=== PATIENT | male | born 1970 | race Two or more races ===

== ENCOUNTER 2021-09-14 11:07 | Outpatient (REF) | payer OTHER, SELFPAY ==
[2021-09-14 13:25] LABS: COVID-19 Test Negative (Negative)
== END 2021-09-14 11:08 | disposition home or self-care (01) ==
LOC: HO.LAB 11:07
PROVIDERS: Visit Provider Internal Medicine
DX: Z20.822 Contact with and (suspected) exposure to COVID-19 (principal)
CPT/HCPCS: 87635; C9803

== ENCOUNTER 2024-09-16 17:56 | Emergency (ER) | payer OTHER, SELFPAY ==
[2024-09-16 18:07] VITALS: BP 128/68; PULSE 90; RESP 20; TEMP 36.9; O2SAT 99; BMI 23.9
--- NOTE | 2024-09-16 19:33 | MHC.EDTECH ---
Patient brought into triage area,labs,and both sets of blood cultures obtained and sent to lab
[2024-09-16 19:39] LABS: MANUAL DIFF FLAG NO
[2024-09-16 19:41] LABS: Basophils Percent Auto 0.2 % (0-2); Eosinophils Absolute Auto 0.2 X10*3/uL (0.0-0.4); Eosinophils Percent Auto 2.1 % (0-4); Hematocrit 33.9 % (42.0-52.0); Hemoglobin 11.8 g/dl (14.0-18.0); Imm Gran Abs Auto 0.05 X10*3/uL (0.00-0.03); Imm Gran Pct Auto 0.5 % (0.0-0.4); Lymphocytes Absolute Auto 1.6 X10*3/uL (1.2-4.9); Lymphocytes Percent Auto 15.4 % (20-40); Mean Corpuscular HGB Conc 34.8 g/dl (31.0-36.0); Mean Corpuscular Hemoglobin 29.5 pg (27.0-33.0); Mean Corpuscular Volume 84.8 fL (80.0-98.0); Mean Platelet Volume 8.9 fL (9.4-12.4); Monocytes Absolute Auto 0.7 X10*3/uL (0.1-1.2); Monocytes Percent Auto 6.8 % (2-11); Neutrophils Absolute Auto 7.7 x10*3/uL (2.0-8.3); Platelet Count 369 X10*3/uL (160-400); Red Cell Distribution Width 12.3 % (11.0-16.0); White Blood Count 10.2 X10*3/uL (4.8-10.8)
[2024-09-16 20:04] LABS: Lactic Acid 1.3 mmol/L (0.5-2.0)
[2024-09-16 20:06] LABS: Alanine Aminotransferase 36 U/L (0-40); Albumin Level 3.1 g/dL (3.5-5.0); Alkaline Phosphatase 290 U/L (39-117); Anion Gap 9 (12-20); Aspartate Amino Transferase 35 U/L (5-37); Bilirubin Total 0.3 mg/dL (0.0-1.0); Blood Urea Nitrogen 23 mg/dL (9-16); Calcium 8.8 mg/dL (8.4-10.2); Carbon Dioxide 27 mmol/L (22-29); Chloride 101 mmol/L (96-108); Creatinine Clr Calc Pharmacy 77.4; Estimated Glomerular Filt Rate > 60; Glucose Random 250 mg/dL (60-115); Lipase 28 U/L (8-78); Potassium 4.7 mmol/L (3.3-5.1); Sodium 132 mmol/L (135-145); Total Protein 8.6 g/dL (6.5-8.0)
--- NOTE | 2024-09-16 22:13 | ED.GENADULT ---
HPI - General Adult General Chief complaint: General Medical Stated complaint: neck pain, no injury Time Seen by Provider: 09/16/24 22:12 Source: patient and family () Mode of arrival: ambulatory Limitations: language barrier (Bruneian speaking only, [facility] [place] student driving instructor used) History of Present Illness ED Provider: Dr. Skip Richard HPI narrative: 54-year-old male with a history diabetes mellitus and hypertension recently admitted for 3 days of IV antibiotics for a throat infection to [facility] discharged 6 days prior. Patient states that he had an infection of the right side of his throat and received IV antibiotics for 3 days. He was discharged on Augmentin 875/125 q.12 hours times 11 days and tramadol for pain. Patient states that since being discharged home he was had difficulty swallowing solids but can swallow liquids. He states it solids seemed to get stuck in his throat and gives him pain. He also states that his neck feels stiff. Patient was taking tramadol for the pain but he states that he was run out of tramadol and has no other pain medications. He denied fever but did have chills. He states that after eating he will sometimes cough, have chest pain, have shortness of breath and vomit. He denies nausea, myalgias, arthralgias or diarrhea. I was able to review the discharge summary from [facility] dated 09/10/2024: Patient's discharge diagnosis was pharyngeal edema, strep pharyngitis, odynophagia, diabetes mellitus and hypertension. Patient was admitted on 09/07/2024 for acute neck pain and dysphagia. Patient had 2 days of poor oral intake with URI symptoms including cough, rhinorrhea, general weakness. CT scan of the neck revealed diffuse wall thickening along the posterior pharyngeal and laryngeal wall suggesting edema or acute infection but no discrete abscess. Throat culture was positive for strep A. ENT consult recommended dexamethasone x2 doses, patient was initially on vancomycin and Zosyn and changed to Unasyn 3 g q.6 hours in treated for 3 days with IV antibiotics. Repeat CT scan of the neck on 09/10/2024 remained negative for abscess and no worsening of his laryngeal edema. Patient was discharged with prescriptions for Augmentin 875/125 twice a day, gabapentin, ibuprofen and tramadol Related Data Previous Rx's ?Medication ?Instructions ?Recorded morphine 15 mg immediate release 15 mg PO Q8H PRN pain #10 tabs 09/17/24 tablet Allergies Allergy/AdvReac Type Severity Reaction Status Date / Time No Known Allergies Allergy Verified 09/16/24 18:11 Review of Systems Review of Systems: Yes all other systems are reviewed and are negative [facility] Past Medical History [facility] Narrative: Social history: He was . It was is here in the emergency department with him. He denies tobacco, alcohol and drug use. Social History Social History Advance Directives: No Advance Directives Information Provided: No Do you have a plan to hurt others: No Plan Physical Exam ED Vital Signs: Vital Signs - 24 hr 09/16/24 18:07 Temperature 98.5 F Pulse Rate 90 Respiratory Rate 20 Blood Pressure 128/68 Pulse Oximetry 99 Oxygen Delivery Method Room Air BMI result Body Mass Index 23.9 Vital signs were normal Exam: General: Awake, alert in no distress Head: Normocephalic, atraumatic EENT: PERRL, Lids normal, sclera normal, conjunctiva normal, nose normal , ears normal, throat without erythema or exudates Neck: Supple, no adenopathy, tenderness palpation of the patient's right trapezius muscle and right side of his neck with no obvious palpable mass, no erythema or increased warmth over the patient's skin Lung: breath sounds symmetric, no wheezing, rales or rhonchi Chest: symmetric movement, nontender Heart: regular rate and rhythm, normal S1, S2 no murmurs or rubs Abdomen: soft, non-tender, nondistended, normal bowel sounds Back: no vertebral tenderness, no CVAT Extremities: no deformities, moves all extremities symmetrically Neuro: Awake, alert, oriented, normal speech, cranial nerves intact, moves all extremities symmetrically Psych: Pleasant, cooperative Medications Administered Discontinued Medications Generic Name Dose Route Start Last Admin Trade Name Freq PRN Reason Stop Dose Admin Sodium Chloride 1,000 mls @ 999 mls/hr 09/16/24 22:31 09/16/24 22:56 Ns IV 09/16/24 23:31 999 mls/hr .Q1H1M STA Administration Morphine Sulfate 4 mg 09/16/24 22:31 09/16/24 22:55 Morphine Sulfate 4 Mg/Ml Cartridge IVPUSH 09/16/24 22:32 4 mg ONCE STA Administration Protocol Ondansetron HCl 4 mg 09/16/24 22:31 09/16/24 22:55 Ondansetron Hcl 4 Mg/2 Ml Vial IVPUSH 09/16/24 22:32 4 mg ONCE ONE Administration Medical Decision Making Medical Decision Making [facility] Narrative: 54-year-old male with a history diabetes mellitus and hypertension r ecently admitted for 3 days of IV antibiotics for a throat infection to [facility] from 09/07/2024 until 09/10/2024 forr pharyngeal and laryngeal wall edema secondary to group a strep infection but no discrete abscess. Patient had 3 days of IV antibiotics and pain medications and was discharged on Augmentin 875/125 q.12 hours times 10 days, tramadol and gabapentin for pain. Patient states that he was having difficulty swallowing solids but not liquids in his having pain with swallowing. Patient had chills but no fever. Review of systems otherwise unremarkable. Vital signs were normal. Physical examination did reveal tenderness palpation of the right side of his neck otherwise was unremarkable. Differential diagnosis: ?Includes but is not limited to peritonsillar abscess, pharyngeal abscess, pharyngeal cellulitis, pharyngeal edema, GERD, globus, electrolyte abnormalities, anemia Course: 22:40 My interpretation patient's laboratory WBC normal 10,200. Normocytic anemia with an H&H of 11.8 and 33.9. Low sodium 132. Elevated BUN 23. Elevated glucose 250. Alk-phos elevated 280. At this time I believe that the patient's dysphagia secondary to pain and not secondary to recurrence of his infection. I did discuss this with the patient. Patient was treated with normal saline IV x1 L, morphine 4 mg IV and Zofran 4 mg IV. 23:56 Patient's pain improved to 4/10. He was given a 2nd dose of morphine 4 mg IV and discharged home. Patient was advised to continue taking his gabapentin and ibuprofen and for pain not relieved by these 2 medications he was prescribed morphine 15 mg every 8 hours as needed for pain. He was given printed and verbal instructions and discharged home. Admission/Observation Consideration of admission/observation: Escalation of care including admission/observation considered (Yes) Lab Data [facility] Lab Attestation statement: I reviewed the patient's lab results. 09/16/24 19:27 09/16/24 19:27 Labs: Lab Results 09/16/24 Range/Units 19:27 WBC 10.2 (4.8-10.8) X10*3/uL RBC 4.00 L (4.60-5.80) X10*6/uL Hgb 11.8 L (14.0-18.0) g/dl Hct 33.9 L (42.0-52.0) % MCV 84.8 (80.0-98.0) fL MCH 29.5 (27.0-33.0) pg MCHC 34.8 (31.0-36.0) g/dl RDW 12.3 (11.0-16.0) % Plt Count 369 (160-400) X10*3/uL MPV 8.9 L (9.4-12.4) fL Immature Gran % (Auto) 0.5 H (0.0-0.4) % Neut % (Auto) 75.0 H (45-73) % Lymph % (Auto) 15.4 L (20-40) % [place] % (Auto) 6.8 (2-11) % Eos % (Auto) 2.1 (0-4) % Baso % (Auto) 0.2 (0-2) % Lymph # (Auto) 1.6 (1.2-4.9) X10*3/uL [place] # (Auto) 0.7 (0.1-1.2) X10*3/uL Eos # (Auto) 0.2 (0.0-0.4) X10*3/uL Baso # (Auto) 0.0 (0.0-0.2) X10*3/uL Abs Immat Gran (auto) 0.05 H (0.00-0.03) X10*3/uL Absolute Neuts (auto) 7.7 (2.0-8.3) x10*3/uL Absolute Nucleated RBC 0.000 (0.0-0.012) X10*3/uL Nucleated RBC % (auto) 0.0 (0.0-0.2) /100WBC Sodium 132 L (135-145) mmol/L Potassium 4.7 (3.3-5.1) mmol/L Chloride 101 (96-108) mmol/L Carbon Dioxide 27 (22-29) mmol/L Anion Gap 9 L (12-20) BUN 23 H (9-16) mg/dL Creatinine 0.97 (0.5-1.4) mg/dL Estim Creat Clear Calc 77.4 Estimated GFR > 60 Random Glucose 250 H (60-115) mg/dL Lactic Acid 1.3 (0.5-2.0) mmol/L Calcium 8.8 (8.4-10.2) mg/dL Total Bilirubin 0.3 (0.0-1.0) mg/dL AST 35 (5-37) U/L ALT 36 (0-40) U/L Alkaline Phosphatase 290 H (39-117) U/L Total Protein 8.6 H (6.5-8.0) g/dL Albumin 3.1 L (3.5-5.0) g/dL Lipase 28 (8-78) U/L Independent Historian Clinical information obtained from an independent historian. History obtained from or confirmed by: Spouse External Record Review External record reviewed: Inpatient record ([facility] discharge summary he 09/10/2024) Prescription Management I considered prescription management with: Pain Medication Chronic Conditions Patient?s care impacted by: Diabetes and Hypertension Discharge Plan Discharge Clinical Impression: Cellulitis of pharynx, Odynophagia Patient Disposition: Home, Self-Care Additional Instructions: Your pain and difficulty swallowing is caused by an infection of the back of your throat (pharynx) Finish your antibiotics as prescribed by [facility]. Continue taking ibuprofen and gabapentin for your pain.. You can also take Tylenol (acetaminophen) 2 pills every 6 hours as needed for pain. For pain not relieved by ibuprofen, gabapentin or Tylenol take morphine 15 mg pills, 1 pill every 8 hours as needed for pain. This medication will make you sleepy, do not drive or work while taking this medication. Morphine is a narcotic medication and can be addicting. If you are concerned about addiction you can ask the pharmacist for less pills or do not get this prescription filled. Continue your other medications as prescribed Follow-up with your doctor in 2 days. Please return to the emergency department if your symptoms get worse or if you develop any symptoms that are concerning to you. Prescriptions: New morphine 15 mg tablet 15 mg PO Q8H PRN (Reason: pain) Qty: 10 0RF Rx Instructions: Partial Fill upon patient request. Print Language: Yi
[2024-09-16] MEDS: ondansetron HCL 4 MG/2 ML VIAL IVPUSH (22:55)
[2024-09-16] MEDS: Morphine Sulfate 4 MG/ML CARTRIDGE IVPUSH (22:55)
[2024-09-16] MEDS: 0.9 % Sodium Chloride 1,000 ML 999 ML IV (22:56)
[2024-09-17 00:09] VITALS: BP 120/61; PULSE 66; RESP 16; TEMP 36.3; O2SAT 96
[2024-09-17] MEDS: Morphine Sulfate 4 MG/ML CARTRIDGE IVPUSH (00:37)
[2024-09-17 00:41] VITALS: BP 0/0; PULSE 0; RESP 0; TEMP -17.7; TEMP 0; O2SAT 0
== END 2024-09-17 00:44 | disposition home or self-care (01) ==
PROVIDERS: Physician Assistant; Emergency Provider Emergency Medicine Emergency Medical Services
DX: J39.1 Other abscess of pharynx (principal); R13.12 Dysphagia, oropharyngeal phase; M54.2 Cervicalgia; E11.9 Type 2 diabetes mellitus without complications; I10 Essential (primary) hypertension; R11.2 Nausea with vomiting, unspecified; R06.02 Shortness of breath; R13.10 Dysphagia, unspecified; Z79.899 Other long term (current) drug therapy
CPT/HCPCS: 36415; 80053; 83605; 83690; 85025; 87040; 96374; 96375; 96376; 99283; 99284; J2270; J2405

== ENCOUNTER 2024-09-19 13:19 | Emergency (ER) | payer OTHER, SELFPAY ==
--- NOTE | ~2024-09-19 | XR_ITS ---
CLINICAL HISTORY: chest pain 1 view chest x-ray. Comparison: None Findings: The lungs appear clear. There is no consolidation, effusion, or pneumothorax. Cardiomediastinal silhouette is within normal limits. The ill-defined fluid and fat stranding in the mediastinum seen on the neck CT is not visualized radiographically. There is no evidence of pneumomediastinum. IMPRESSION: No acute radiographic findings. The ill-defined fluid and fat stranding in the upper mediastinum seen in the neck CT is not visualized. This document has been electronically signed by: Antelmo Thomas MD on 09/19/2024 23:27:59
--- NOTE | ~2024-09-19 | CT_ITS ---
CLINICAL HISTORY: Dysphagia CT soft tissue neck with contrast. Comparison: None Findings: There is a retropharyngeal fluid collection with a thin rim of enhancement extending from C2 to C5-6 measuring about 7 cm vertically and 4.2 x 1.3 cm axially. There is some ill-defined fluid and fat stranding inferior to the fluid collection extending into the upper mediastinum adjacent to the esophagus. A small portion of the retropharyngeal fluid collection also extends into the left anterior neck adjacent to the left lobe of the thyroid. There is no subcutaneous gas. The airway is widely patent. Epiglottis is normal in size. Tonsils and adenoids are unremarkable. Parotid glands and submandibular glands are unremarkable. Blood vessels of the neck appear normal. There are no enlarged lymph nodes. IMPRESSION: Retropharyngeal fluid collection with thin rim of enhancement as described above suspicious for a retropharyngeal abscess/exudative retropharyngeal effusion. There is also some ill-defined fluid and fat stranding extending inferiorly from the fluid collection into the upper mediastinum around the esophagus suspicious for mediastinitis. This document has been electronically signed by: Antelmo Thomas MD on 09/19/2024 22:11:42
[2024-09-19 13:25] VITALS: BP 108/73; PULSE 80; RESP 19; TEMP 37; O2SAT 98; BMI 24.8
[2024-09-19 14:19] LABS: MANUAL DIFF FLAG NO
[2024-09-19 14:20] LABS: Basophils Percent Auto 0.4 % (0-2); Eosinophils Absolute Auto 0.1 X10*3/uL (0.0-0.4); Hematocrit 33.5 % (42.0-52.0); Hemoglobin 11.4 g/dl (14.0-18.0); Imm Gran Abs Auto 0.03 X10*3/uL (0.00-0.03); Imm Gran Pct Auto 0.3 % (0.0-0.4); Lymphocytes Absolute Auto 1.9 X10*3/uL (1.2-4.9); Lymphocytes Percent Auto 21.4 % (20-40); Mean Corpuscular Hemoglobin 28.9 pg (27.0-33.0); Mean Corpuscular Volume 84.8 fL (80.0-98.0); Mean Platelet Volume 8.6 fL (9.4-12.4); Monocytes Absolute Auto 0.8 X10*3/uL (0.1-1.2); Monocytes Percent Auto 8.5 % (2-11); Neutrophils Absolute Auto 6.2 x10*3/uL (2.0-8.3); Neutrophils Percent Auto 68.4 % (45-73); Platelet Count 485 X10*3/uL (160-400); Red Blood Count 3.95 X10*6/uL (4.60-5.80); Red Cell Distribution Width 12.2 % (11.0-16.0)
[2024-09-19 14:31] LABS: IDNOW Serial# 58CA691E; Strep A Nucleic Acid Negative (Negative)
[2024-09-19 14:32] LABS: Anion Gap 11 (12-20); Blood Urea Nitrogen 19 mg/dL (9-16); Carbon Dioxide 27 mmol/L (22-29); Chloride 98 mmol/L (96-108); Creatinine Clr Calc Pharmacy 76.7; Estimated Glomerular Filt Rate > 60; Glucose Random 302 mg/dL (60-115); Sodium 131 mmol/L (135-145)
[2024-09-19 15:23] LABS: Influenza A PCR NEGATIVE (Negative); Influenza B PCR NEGATIVE (Negative); Resp Syncy Virus RNA Qual PCR NEGATIVE (Negative); SARS COV2 PCR INHOUSE NEGATIVE (Negative)
--- NOTE | 2024-09-19 16:14 | ED_ITS ---
HPI - General Adult General Chief complaint: General Medical Stated complaint: unable to swallow back pain Time Seen by Provider: 09/19/24 16:09 Source: patient Mode of arrival: ambulatory Limitations: no limitations History of Present Illness ED Provider: HPI narrative: Patient with history of diabetes comes here for 3 weeks of throat and difficulty in swallowing says that whenever he drinks or eats something he feels pain in the neck radiating to the back of the neck and upper chest patient denies any anxiety patient was seen at [facility] on 09/[address] scan and workup was negative Related Data Previous Rx's ?Medication ?Instructions ?Recorded morphine 15 mg immediate release 15 mg PO Q8H PRN pain #10 tabs 09/17/24 tablet Allergies Allergy/AdvReac Type Severity Reaction Status Date / Time No Known Allergies Allergy Verified 09/19/24 13:29 Review of Systems 2 Review of Systems: Yes all other systems are reviewed and are negative PMFSH Social History Social History Smoked in Last 30 Days: No Use of substances other than those prescribed or required for medical reasons: No Advance Directives: No Advance Directives Information Provided: No Do you have a plan to hurt others: No Plan Physical Exam ED Vital Signs: Vital Signs - 24 hr 09/19/24 13:25 09/19/24 16:38 09/19/24 18:06 Temperature 98.6 F 98.7 F Pulse Rate 80 74 72 Respiratory Rate 19 16 14 Blood Pressure 108/73 120/67 122/67 Pulse Oximetry 98 98 98 Oxygen Delivery Method Room Air Room Air Room Air 09/19/24 20:26 09/19/24 23:21 Temperature 98.3 F Pulse Rate 88 68 Respiratory Rate 20 18 Blood Pressure 144/76 H 136/70 Pulse Oximetry 96 99 Oxygen Delivery Method Room Air BMI result Body Mass Index 24.8 Appearance: Alert. Oriented X3. No acute distress. Eyes: No pallor or icterus ENT: Pharynx normal. Oral Mucosa moist no stridor Neck: Normal inspection. Neck supple. CVS: Normal heart rate and rhythm. Pulses normal. Respiratory: No respiratory distress. Equal air entry bilateral, no wheezing/rales/rhonchi Abdomen: Soft and nontender. Bowel sounds are present, Skin: Skin warm and dry. Normal skin color. Normal skin turgor. Extremities: No lower extremity edema. No calf tenderness Neuro: Oriented X 3. No motor deficit. Medications Administered Discontinued Medications Generic Name Dose Route Start Last Admin Trade Name Silvino PRN Reason Stop Dose Admin Dexamethasone Sodium Phosphate 10 mg 09/19/24 23:01 09/19/24 23:42 Dexamethasone Sod Phosphate 10 Mg/Ml Vial IVPUSH 09/19/24 23:02 10 mg ONCE ONE Administration Sodium Chloride 1,000 mls @ 999 mls/hr 09/19/24 17:26 09/19/24 19:13 Ns IV 09/19/24 18:26 Infused .Q1H1M ONE Infusion Piperacillin Sod/Tazobactam 50 mls @ 100 mls/hr 09/19/24 22:21 09/19/24 23:04 Sod 3.375 gm/ Sodium Chloride IV 09/19/24 22:50 Infused ONCE ONE Infusion Iohexol 60 ml 09/19/24 21:10 09/19/24 21:11 Iohexol 350 Mg/Ml 100 Ml Infus..Btl IV 09/19/24 21:11 60 ml ONCE ONE Administration Ketorolac Tromethamine 30 mg 09/19/24 20:36 09/19/24 21:26 Ketorolac Tromethamine 30 Mg/Ml Vial IVPUSH 09/19/24 20:37 30 mg ONCE ONE Administration Lidocaine HCl 15 ml 09/19/24 16:35 09/19/24 16:42 Lidocaine Hcl Viscous 2 % 15 Ml Solution MUCOUS MEM 09/19/24 16:36 15 ml ONCE ONE Administration Lorazepam 1 mg 09/19/24 16:36 09/19/24 16:42 Lorazepam 1 Mg Tablet PO 09/19/24 16:37 1 mg ONCE ONE Administration Medical Decision Making Medical Decision Making MDM Narrative: Patient with throat pain painful to swallow medical doctor from [place] not feel reviewed patient was admitted on 09/07 with strep throat with pharyngeal edema no abscess noted patient has had 2 CT scans of the neck and both CT scan did not show any fluid collection patient will discharge home on Augmentin and tramadol with clinically patient does not have any significant dysphagia patient felt better after lidocaine viscous will do a CT scan of the neck to rule out any deeper abscess Patient's CT scan showed retropharyngeal fluid collection suspicious of retropharyngeal abscess/effusion extending inferiorly to the upper mediastinum will start patient on Zosyn and plan for transfer to [facility] for ENT evaluation for retropharyngeal abscess patient has been accepted by [facility] hospitalist group awaiting for the transfer patient received Zosyn and 10 mg of Decadron in the ER vitals are stable case discussed with ENT on-call at [facility] Differential Diagnosis Differential Diagnoses: The differential diagnosis associated with the presentation includes Admission/Observation Consideration of admission/observation: Escalation of care including admission/observation considered Lab Data MDM Lab Attestation statement: I reviewed the patient's lab results. 09/19/24 14:10 09/19/24 14:10 Labs: Lab Results 09/19/24 09/19/24 09/19/24 Range/Units 14:08 14:10 16:37 WBC 9.0 (4.8-10.8) X10*3/uL RBC 3.95 L (4.60-5.80) X10*6/uL Hgb 11.4 L (14.0-18.0) g/dl Hct 33.5 L (42.0-52.0) % MCV 84.8 (80.0-98.0) fL MCH 28.9 (27.0-33.0) pg MCHC 34.0 (31.0-36.0) g/dl RDW 12.2 (11.0-16.0) % Plt Count 485 H D (160-400) X10*3/uL MPV 8.6 L (9.4-12.4) fL Immature Gran % (Auto) 0.3 (0.0-0.4) % Neut % (Auto) 68.4 (45-73) % Lymph % (Auto) 21.4 (20-40) % [place] % (Auto) 8.5 (2-11) % Eos % (Auto) 1.0 (0-4) % Baso % (Auto) 0.4 (0-2) % Lymph # (Auto) 1.9 (1.2-4.9) X10*3/uL [place] # (Auto) 0.8 (0.1-1.2) X10*3/uL Eos # (Auto) 0.1 (0.0-0.4) X10*3/uL Baso # (Auto) 0.0 (0.0-0.2) X10*3/uL Abs Immat Gran (auto) 0.03 (0.00-0.03) X10*3/uL Absolute Neuts (auto) 6.2 (2.0-8.3) x10*3/uL Absolute Nucleated RBC 0.000 (0.0-0.012) X10*3/uL Nucleated RBC % (auto) 0.0 (0.0-0.2) /100WBC Sodium 131 L (135-145) mmol/L Potassium 5.0 (3.3-5.1) mmol/L Chloride 98 (96-108) mmol/L Carbon Dioxide 27 (22-29) mmol/L Anion Gap 11 L (12-20) BUN 19 H (9-16) mg/dL Creatinine 0.98 (0.5-1.4) mg/dL Estim Creat Clear Calc 76.7 Estimated GFR > 60 POC Glucose 272 H (60-115) mg/dL Random Glucose 302 H (60-115) mg/dL Calcium 9.0 (8.4-10.2) mg/dL Influenza Type A (PCR) NEGATIVE (Negative) Influenza Type B (PCR) NEGATIVE (Negative) RSV RNA Qual (PCR) NEGATIVE (Negative) SARS-CoV-2 RNA (RT-PCR) NEGATIVE (Negative) S. pyogenes GrpA SIMONA Negative (Negative) Independent Interpretation I performed an independent interpretation of an: CT Scan Radiology Impression Discussion of test interpretation with radiology: I have reviewed the radiologist's reading. Radiologist Impression: [place] [id number] CT Scan Report Signed Patient: Javier Amaro MR#: [id number] : 1970 Acct:[id number] Age/Sex: 54 / M ADM Date: 09/19/24 Loc: HO.ED Attending Dr: Ordering Physician: Zachery Hogan MD Date of Service: 09/19/24 Procedure(s): CT soft tissue neck w IV con Accession Number(s): [id number] cc: Destini Corley MD; Zachery Hogan MD~ Report Number: [id number]: Total DLP = 511.00 mGy-cm CLINICAL HISTORY: Dysphagia CT soft tissue neck with contrast. Comparison: None Findings: There is a retropharyngeal fluid collection with a thin rim of enhancement extending from C2 to C5-6 measuring about 7 cm vertically and 4.2 x 1.3 cm axially. There is some ill-defined fluid and fat stranding inferior to the fluid collection extending into the upper mediastinum adjacent to the esophagus. A small portion of the retropharyngeal fluid collection also extends into the left anterior neck adjacent to the left lobe of the thyroid. There is no subcutaneous gas. The airway is widely patent. Epiglottis is normal in size. Tonsils and adenoids are unremarkable. Parotid glands and submandibular glands are unremarkable. Blood vessels of the neck appear normal. There are no enlarged lymph nodes. IMPRESSION: Retropharyngeal fluid collection with thin rim of enhancement as described above suspicious for a retropharyngeal abscess/exudative retropharyngeal effusion. There is also some ill-defined fluid and fat stranding extending inferiorly from the fluid collection into the upper mediastinum around the esophagus suspicious for mediastinitis. This document has been electronically signed by: Antelmo Thomas MD on 09/19/2024 22:11:42 [place] [address] XRay Report Signed Patient: Javier Amaro MR#: [id number] : 1970 Acct:[id number] Age/Sex: 54 / M ADM Date: 09/19/24 Loc: .ED Attending Dr: Ordering Physician: Zachery Hogan MD Date of Service: 09/19/24 Procedure(s): XR chest 1V Accession Number(s): [id number] cc: Destini Corley MD; Zachery Hogan MD~ CLINICAL HISTORY: chest pain 1 view chest x-ray. Comparison: None Findings: The lungs appear clear. There is no consolidation, effusion, or pneumothorax. Cardiomediastinal silhouette is within normal limits. The ill-defined fluid and fat stranding in the mediastinum seen on the neck CT is not visualized radiographically. There is no evidence of pneumomediastinum. IMPRESSION: No acute radiographic findings. The ill-defined fluid and fat stranding in the upper mediastinum seen in the neck CT is not visualized. This document has been electronically signed by: Antelmo Thomas MD on 09/19/2024 23:27:59 Critical Care Time Critical Care Time Critical Care Time: Yes Total Critical Care Time: 60 Attestation: The patient was critically ill with a high probability of imminent or life threatening deterioration. I spent greater than 65???minutes of discontinuous time evaluating the patient,delivering critical care at the bedside, discussing and evaluating pertinent data with consultants. Critical care time does not include time spent performing separately billable procedures or teaching. Total time spent performing critical care was 60???minutes. Discharge Plan Discharge Clinical Impression: Retropharyngeal and parapharyngeal abscess Patient Disposition: [facility] Transfer Details: [facility] hospitalist group Prescriptions: No Action morphine 15 mg tablet 15 mg PO Q8H PRN (Reason: pain) Qty: 10 0RF Rx Instructions: Partial Fill upon patient request. Print Language: Uzbek
[2024-09-19 16:38] VITALS: BP 120/67; PULSE 74; RESP 16; O2SAT 98
--- NOTE | 2024-09-19 16:39 | MHC.EDTECH ---
POC: 272, FRANCA Villalba notified.
[2024-09-19 16:40] LABS: Glucose, Whole Blood 272 mg/dL (60-115)
[2024-09-19] MEDS: Lidocaine HCl Viscous 2 % 15 ML SOLUTION MUCOUS MEM (16:42)
[2024-09-19] MEDS: LORazepam 1 MG TABLET PO (16:42)
--- NOTE | 2024-09-19 16:45 | PC.NURSE ---
patient medicated per OCT, airway patent, tolerating secretions, no vomiting or drooling. patient drinking water in hallway bed 22
[2024-09-19] MEDS: 0.9 % Sodium Chloride 1,000 ML 999 ML IV (17:48)
[2024-09-19 18:06] VITALS: BP 122/67; PULSE 72; RESP 14; TEMP 37.1; O2SAT 98
[2024-09-19 20:26] VITALS: BP 144/76; PULSE 88; RESP 20; O2SAT 96
[2024-09-19] MEDS: iohexoL 350 MG/ML 100 ML INFUS..BTL 60 ML IV (21:11)
[2024-09-19] MEDS: Ketorolac Tromethamine 30 MG/ML VIAL IVPUSH (21:26)
[2024-09-19] MEDS: Piperacillin Sodium/Tazobactam 3.375 GM in 0.9 % Sodium Chloride 50 ML IV (22:34)
--- NOTE | 2024-09-19 22:42 | PC.NURSE ---
Pt medicated per oct. Pain in back of neck went from 03/11 to 4 s/p toradol administration. Per MD malone pt to be transferred to [place] for ? spinal abscess. Pt and family aware of plan.
[2024-09-19 23:21] VITALS: BP 136/70; PULSE 68; RESP 18; TEMP 36.8; O2SAT 99
[2024-09-19] MEDS: dexAMETHasone sod phosphate 10 MG/ML VIAL IVPUSH (23:42)
--- NOTE | 2024-09-19 23:46 | PC.NURSE ---
pt accepted at [facility] however waiting for bed assignment.
--- NOTE | 2024-09-20 06:18 | PC.NURSE ---
Pt going to [facility] 5 Bed 25 - Nurse to nurse phone #[phone]
[2024-09-20 06:23] VITALS: BP 120/70; PULSE 75; RESP 14; TEMP 36.6; O2SAT 96
--- NOTE | 2024-09-20 06:33 | PC.NURSE ---
nurse to nurse report called to [facility] [place] RN @06:30, transport booked by [facility] medical secretary
--- NOTE | 2024-09-20 07:03 | PC.NURSE ---
report given to GINO ingram at this time. pt being transferred to [facility].
[2024-09-20 07:04] VITALS: BP 120/70; PULSE 75; RESP 14; TEMP 36.6; O2SAT 96
== END 2024-09-20 07:07 | disposition short-term general hospital (02) ==
PROVIDERS: Emergency Provider Internal Medicine; PCP Internal Medicine
DX: J39.0 Retropharyngeal and parapharyngeal abscess (principal); M54.50 Low back pain, unspecified; R13.10 Dysphagia, unspecified; R07.89 Other chest pain; M54.2 Cervicalgia; Z03.818 Encounter for observation for suspected exposure to other biological agents ruled out; Z79.899 Other long term (current) drug therapy
CPT/HCPCS: 0241U; 70491; 71045; 80048; 82947; 85025; 87651; 99285; J1100; J1885; J2543; Q9967

== ENCOUNTER → 2024-09-19 17:26 | Outpatient (BNV) | payer OTHER, SELFPAY | PROVIDERS: Emergency Provider Internal Medicine; PCP Internal Medicine; Visit Provider Radiology Diagnostic Radiology | DX: J39.0 Retropharyngeal and parapharyngeal abscess (principal); R07.9 Chest pain, unspecified | CPT/HCPCS: 70491; 71045 ==